=== PATIENT | male | born 1980 | race Caucasian/White ===

== ENCOUNTER 2023-12-26 14:55 | Emergency (ER) | payer OTHER ==
[~2023-12-26] VITALS: Ht 170.2 cm; Wt 79.5 kg
[2023-12-26 15:12] VITALS: BP 163/92; PULSE 112; RESP 18; TEMP 98.3
[2023-12-26 15:18] LABS: COVID AG,FIA SOURCE NASAL SWAB
[2023-12-26 15:51] LABS: INFLUENZA TYPE A NEGATIVE FOR TYPE A (NEGATIVE); INFLUENZA TYPE B NEGATIVE FOR TYPE B (NEGATIVE)
[2023-12-26 16:04] LABS: SARS-COV2 (COVID) ANTIGEN,FIA Positive (Negative)
[2023-12-26] MEDS ORDERED: OXYM15SP57 NASAL (16:34)
[2023-12-26] MEDS ORDERED: FLUT16SP NASAL (16:34)
== END 2023-12-26 17:04 | disposition home or self-care (01) ==
LOC: EMS 14:55
DX: U07.1 COVID-19 (principal)
CPT/HCPCS: 87804; 99283